=== PATIENT | male | born 1965 | race Caucasian/White ===

== ENCOUNTER 2018-10-21 23:19 | Emergency (ER) | payer OTHER ==
[~2018-10-21] VITALS: Ht 165.1 cm; Wt 70.3 kg
[~2018-10-21 23:19] MED LIST: CLARITHROMYCIN250 M2 PO; FLAGYL500 MG PO; ZANTAC 150MG T150 MG PO
[2018-10-22 00:08] LABS: ABSOLUTE NEUTROPHILS 6.8 thou/uL (1.4-8.2); EOSINOPHILS 5.1 % (0.0-3.0); HEMOGLOBIN 15.8 gm/dL (14.0-18.0); LYMPHOCYTES 26.3 % (24.0-44.0); MCH 31.4 pg (26.0-34.0); MCHC 34.4 g/dL (28.0-37.0); MCV 91.4 fL (80.0-100.0); MONOCYTES 8.8 % (1.0-8.0); PLATELET COUNT 242 thou/uL (150-400); POLYS 58.8 % (36.0-66.0); RBC 5.03 mil/uL (4.50-6.00); RDW 14.3 % (10.5-14.5); WBC 11.6 thou/uL (4.0-11.0)
[2018-10-22 00:09] LABS: URINE BILIRUBIN NEGATIVE (Negative); URINE BLOOD TRACE (Negative); URINE CLARITY CLEAR; URINE COLOR YELLOW; URINE GLUCOSE-RANDOM* NEGATIVE (Negative); URINE KETONES NEGATIVE (Negative); URINE LEUKOCYTES-REFLEX NEGATIVE (Negative); URINE NITRITE-REFLEX NEGATIVE (Negative); URINE PROTEIN (DIPSTICK) NEGATIVE (Negative); URINE SPECIFIC GRAVITY 1.015 (1.005-1.035)
[2018-10-22 00:15] LABS: ANION GAP 10 mmol/L (7-16); BUN 21 mg/dL (7-18); CALCIUM 9.4 mg/dL (8.5-10.1); CHLORIDE 103 mmol/L (98-107); CO2 27 mmol/L (21-32); CREATININE 1.2 mg/dL (0.7-1.3); GLUCOSE 102 mg/dL (74-106); POTASSIUM 3.6 mmol/L (3.5-5.1); SODIUM 140 mmol/L (136-145)
[2018-10-22 00:25] LABS: LIPASE 172 U/L (73-393); SGOT 19 U/L (15-37); SGPT 25 U/L (30-65); TOTAL BILIRUBIN 0.4 mg/dL (<0.1-1.0); TROPONIN-I <0.06 ng/mL (<0.06)
[2018-10-22] MEDS ORDERED: TRAMADOL 50 MG50 MG PO (01:36)
[2018-10-22] MEDS ORDERED: NAPROSYN500 MG PO (01:36)
[2018-10-22 02:17] VITALS: BP 102/61
--- NOTE | 2018-10-25 07:56 | EKG ---
[address] [address] ELECTROCARDIOGRAM REPORT Name: DENTANNALISA Room #: DEP Louise#: [id number] Admission: 10/21/18 Attend Phys: Discharge: 10/22/18 Date of : 67 Report #: [id number] THIS REPORT FOR: //name// [facility] ED Test Date: 2018-10-21 Test Time: 23:56:08 Pat Name: ANNALISA DENT Department: Room: Gender: M Machine Washer: lori : 1965 Requested By: Amauri Enriquez Order Number: [id number] MD: Scooter Shine Measurements Intervals [place] Rate: 65 P: 71 AK: 128 QRS: 51 QRSD: 93 T: 26 QT: 404 QTc: 421 Interpretive Statements Sinus rhythm Normal tracing No previous ECG available for comparison Electronically Signed On 10-25-2018 7:56:47 CDT by Scooter Shine [email or web address] <ELECTRONICALLY SIGNED> By: Scooter Shine MD, [facility] 10/25/18 [id number] Scooter Shine MD, FACC /EPI
== END 2018-10-22 02:17 | disposition home or self-care (01) ==
LOC: ER 23:19
PROVIDERS: Emergency Medicine
DX: K40.20 Bilateral inguinal hernia, without obstruction or gangrene, not specified as recurrent (principal); R14.0 Abdominal distension (gaseous); R42 Dizziness and giddiness; N28.1 Cyst of kidney, acquired; F17.210 Nicotine dependence, cigarettes, uncomplicated; Z88.0 Allergy status to penicillin